=== PATIENT | female | born 1955 | race Caucasian/White ===

== ENCOUNTER → 2020-04-10 11:24 | Outpatient (CLI) | payer MEDICARE, BC, SELFPAY ==
--- NOTE | 2020-04-10 | DI.US.S_ITS ---
PROCEDURE: US PERIPH VENOUS UP EXTREM RT INDICATIONS: LOCALIZED WRIST EDEMA TECHNIQUE: Real-time imaging, as well as color and pulse Doppler interrogation, was performed of the right upper extremity deep veins from the inferior neck to the antecubital fossa. COMPARISON: None. FINDINGS: The internal jugular vein, visualized portions of the subclavian vein, axillary, and brachial veins are free of intraluminal thrombus. Where physically possible, the veins are normally compressible. Color and pulse Doppler demonstrate normal intraluminal flow, with expected phasicity and pulsatility. Additional scanning of the cephalic and basilic veins of the superficial system demonstrate normal compressibility, without thrombus. IMPRESSION: Negative for deep venous thrombosis. Note: Concordant preliminary findings given by the ip litigation paralegal upon the completion of the examination to Teresa Harris at 12:04 p.m. on April 10, 2020. Dictated by: Jase Vaughn M.D. on 04/10/2020 at 11:59 Approved by: Jase Vaughn M.D. on 04/10/2020 at 12:00
== END ==
PROVIDERS: PCP Nurse Practitioner Family; Referring Provider Nurse Practitioner Family; Visit Provider Nurse Practitioner Family
DX: R60.0 Localized edema (principal)
CPT/HCPCS: 93971

== ENCOUNTER 2020-04-14 13:54 | Emergency (ER) | payer MEDICARE, BC, SELFPAY ==
[2020-04-14 14:02] VITALS: BP 138/75; PULSE 74; RESP 18; TEMP 36.2; O2SAT 99; BMI 29.7
[2020-04-14 14:37] LABS: Add Manual Diff / Slide Review NO; Basophils Absolute Auto 100 /uL (0-100); Basophils Percent Auto 0.9 % (0-2); Eosinophils Absolute Auto 0 /uL (0-450); Eosinophils Percent Auto 0.2 % (2-4); Hematocrit 38.3 % (36-46); Hemoglobin 12.6 g/dL (12.0-16.0); Lymphocytes Absolute Auto 1200 /uL (1100-4500); Mean Corpuscular HGB Conc 32.9 % (30-36); Mean Corpuscular Hemoglobin 29.6 PG (26-34); Monocytes Absolute Auto 400 /uL (0-900); Neutrophils Absolute Auto 5600 /uL (1500-7000); Neutrophils Percent Auto 76.9 % (50-75); Platelet Count 348 X10^3/uL (150-400); Red Blood Cell Count 4.26 X10^6/uL (4.0-5.2); Red Cell Distribution Width 13.8 % (11.6-14.8); White Blood Cell Count 7.3 X10^3/uL (4.5-11.0)
[2020-04-14 14:42] LABS: Alanine Aminotransferase 15 IU/L (<35); Albumin 4.2 g/dL (3.5-5.0); Albumin Globulin Ratio 1.2 (1.0-2.8); Alkaline Phosphatase 68 U/L (38-126); Aspartate Aminotransferase 21 IU/L (14-36); BUN Creatinine Ratio 23.3 (6-22); Bilirubin Total 0.4 mg/dL (0.2-1.3); Blood Urea Nitrogen 14 mg/dL (7-17); Calcium 9.4 mg/dL (8.4-10.2); Carbon Dioxide 27 mmol/L (22-32); Chloride 105 mmol/L (98-107); Estimated Glomerular Filt Rate > 60.0 mL/min (>60); Globulin 3.5 g/dL (1.7-4.1); Glucose 121 mg/dL (80-110); HEMOLYSIS < 15 (0-50); Potassium 4.7 mmol/L (3.4-5.1); Sodium 137 mmol/L (137-145); Total Protein 7.7 g/dL (6.3-8.2)
[2020-04-14 14:51] LABS: NT-proBNP (BNP-Adult 18+) 103 pg/mL (<125)
--- NOTE | 2020-04-14 16:43 | ED_ITS ---
HPI - Extremity Problem General Chief complaint: Extremity Injury, Upper Stated complaint: pain and swelling/ all over body Time Seen by Provider: 04/14/20 16:35 Source: patient Mode of arrival: Ambulatory Limitations: no limitations History of Present Illness HPI Narrative: This is a 65-year-old female comes to the emergency department with complaint of pain and swelling particularly in her hands but radiating up per arms and mostly on the right side but sometimes on the left as well into her leg. Patient states she feels pain in her joints as well. She states it seems to be worse in the morning and improves throughout the day although she has been taking prednisone for the last 5 days and has found this helpful but as it wears off she feels her symptoms returned significantly. She denies any fevers. She has felt cold but not chills. She has not had any cold cough or congestion. No chest pain or shortness of breath. She had some mild nausea shortly after her prednisone today but otherwise has not had any nausea and has had no vomiting. She denies any GI or urinary symptoms otherwise. She denies any rashes or skin changes. She states she was seen on [place] by Teresa Harris, she had a ultrasound of her right upper extremity which was negative and was told that she needed to get some lab tests which they could not get on the [place] currently. She states she was taking ibuprofen which was moderately helpful. She denies any other medical issues besides carpal tunnel symptoms. 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 She denies other medical issues. She denies any tobacco she denies any alcohol or illicit to myself but to nurse's states a couple times a week and occasional marijuana. Related Data Home Medications Medication Instructions Recorded Confirmed OMEGA-3 FATTY ACIDS (FISH OIL) 500 mg PO #0 07/14/16 [Co-Q-10] #0 07/14/16 ascorbic acid (vitamin C) 500 mg PO QDAY #0 07/14/16 ibuprofen 600 mg PO BID #0 07/14/16 multivitamin [Multiple Vitamins] 1 tab PO QDAY #0 07/14/16 Allergies Allergy/AdvReac Type Severity Reaction Status Date / Time No Known Drug Allergies Allergy Verified 04/14/20 14:02 Review of Systems Review of Systems ROS Unobtainable: All systems reviewed & are unremarkable except as noted in HPI and below Patient History Surgical History Presence of cardiac pacemaker Status post hysterectomy Family History Brother Cancer Heart disease Father Heart disease Mother Mental health problem Social History Smoking Status: Never smoker Smoking Status: Never smoker alcohol intake frequency: a few times a week Substance Use Type: marijuana Exam Narrative Exam Narrative: GEN: well nourished, well appearing female, alert and oriented x 3, patient appears to be in mild distress. HEENT: Atraumatic, pupils are equal round reactive to light, extraocular movements are intact, nares are clear, TMs are clear with no fluid, there is no conjunctival pallor or injection. HEART: Regular rate and rhythm without murmur, clicks, rubs. Pulses are equal in upper and lower extremities LUNGS:Lungs clear to auscultation, no wheezes, rales, crackles, chest moves symmetrically ABD:bowel sounds normal, soft, non-tender, no guarding, rebound, rigidity, no masses noted, no hepatosplenomegaly :No CVA tenderness MSCL: Non-tender, no muscle atrophy, muscles strength 5/5 upper and lower extremities, full range of motion, normal gait, patient has equal manager flight bilaterally. 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 NEURO:CN 2-12 intact, sensation normal SKIN: No rash, erythema or other skin changes. Initial Vital Signs Initial Vital Signs: Vital Signs Temperature 97.1 F L 04/14/20 14:02 Pulse Rate 74 04/14/20 14:02 Respiratory Rate 18 04/14/20 14:02 Blood Pressure 138/75 04/14/20 14:02 Pulse Oximetry 99 04/14/20 14:02 Course Orders Ordered: ED Orders 04/14/20 14:15 BNP [NT-proBNP (BNP-Adult 18+)] Stat CMP [Comprehensive Metabolic Panel] Stat Complete Blood Count AUTO DIFF Stat Creatine Kinase Stat 04/14/20 17:11 COVID19 -ED/INPAT/OR/L&D Stat Vital Signs Vital signs: Vital Signs - 8 hr 04/14/20 14:02 04/14/20 18:06 Temperature 97.1 F L Pulse Rate 74 71 Respiratory Rate 18 18 Blood Pressure 138/75 132/66 Pulse Oximetry 99 99 MDM - Extremity (Nontraumatic) Lab Data Result diagrams: 04/14/20 14:15 04/14/20 14:15 Labs: Lab Results 04/14/20 04/14/20 04/14/20 Range/Units 14:15 14:15 14:15 WBC 7.3 (4.5-11.0) X10^3/uL RBC 4.26 (4.0-5.2) X10^6/uL Hgb 12.6 (12.0-16.0) g/dL Hct 38.3 (36-46) % MCV 90.0 (80-100) fL MCH 29.6 (26-34) PG MCHC 32.9 (30-36) % RDW 13.8 (11.6-14.8) % Plt Count 348 (150-400) X10^3/uL Neut % (Auto) 76.9 H (50-75) % Lymph % (Auto) 16.0 L (25-40) % [place] % (Auto) 6.0 (3-14) % Eos % (Auto) 0.2 L (2-4) % Baso % (Auto) 0.9 (0-2) % Neut # (Auto) 5600 (0117-5777) /uL Lymph # (Auto) 1200 (0377-5182) /uL [place] # (Auto) 400 (0-900) /uL Eos # (Auto) 0 (0-450) /uL Baso # (Auto) 100 (0-100) /uL Sodium 137 (137-145) mmol/L Potassium 4.7 (3.4-5.1) mmol/L Chloride 105 (98-107) mmol/L Carbon Dioxide 27 (22-32) mmol/L BUN 14 (7-17) mg/dL Creatinine 0.60 (0.52-1.04) mg/dL Estimated GFR > 60.0 (>60) mL/min BUN/Creatinine Ratio 23.3 H (6-22) Glucose 121 H (80-110) mg/dL Calcium 9.4 (8.4-10.2) mg/dL Total Bilirubin 0.4 (0.2-1.3) mg/dL AST 21 (14-36) IU/L ALT 15 (<35) IU/L Alkaline Phosphatase 68 (38-126) U/L Total Creatine Kinase (30-135) U/L NT-Pro-B Natriuret Pep 103 (<125) pg/mL Total Protein 7.7 (6.3-8.2) g/dL Albumin 4.2 (3.5-5.0) g/dL Globulin 3.5 (1.7-4.1) g/dL Albumin/Globulin Ratio 1.2 (1.0-2.8) COVID-19 PCR (Negative) 04/14/20 04/14/20 Range/Units 14:15 17:11 WBC (4.5-11.0) X10^3/uL RBC (4.0-5.2) X10^6/uL Hgb (12.0-16.0) g/dL Hct (36-46) % MCV (80-100) fL MCH (26-34) PG MCHC (30-36) % RDW (11.6-14.8) % Plt Count (150-400) X10^3/uL Neut % (Auto) (50-75) % Lymph % (Auto) (25-40) % [place] % (Auto) (3-14) % Eos % (Auto) (2-4) % Baso % (Auto) (0-2) % Neut # (Auto) (7912-6312) /uL Lymph # (Auto) (9431-1045) /uL [place] # (Auto) (0-900) /uL Eos # (Auto) (0-450) /uL Baso # (Auto) (0-100) /uL Sodium (137-145) mmol/L Potassium (3.4-5.1) mmol/L Chloride (98-107) mmol/L Carbon Dioxide (22-32) mmol/L BUN (7-17) mg/dL Creatinine (0.52-1.04) mg/dL Estimated GFR (>60) mL/min BUN/Creatinine Ratio (6-22) Glucose (80-110) mg/dL Calcium (8.4-10.2) mg/dL Total Bilirubin (0.2-1.3) mg/dL AST (14-36) IU/L ALT (<35) IU/L Alkaline Phosphatase (38-126) U/L Total Creatine Kinase 21 L (30-135) U/L NT-Pro-B Natriuret Pep (<125) pg/mL Total Protein (6.3-8.2) g/dL Albumin (3.5-5.0) g/dL Globulin (1.7-4.1) g/dL Albumin/Globulin Ratio (1.0-2.8) COVID-19 PCR Negative (Negative) MDM Narrative Medical decision making narrative: Discussed with patient some of her symptoms are suggestive of possibly a autoimmune or rheumatologic source. We discussed adding on a CPK to her lab work to evaluate for polymyalgia. Patient does seem to be responding to prednisone she has had 5 days worth and was given prescription for 5 additional days although we discussed that she needs to taper down her dosage so she does not get adrenal suppression. Her lab work today does not show any acute abnormalities that would define her symptoms. She states she has had a history of carpal tunnel although her symptoms seem to be more global and less localized to that area at this time. We discussed the unlikely notice go bit but that there is potential for atypical pattern and this was also obtained, both CPK and covid were negative. Discharge Plan Departure Patient Disposition: Home Clinical Impression: Complaints of total body pain Discharge Date/Time: 04/14/20 18:08 Activity Restrictions/Additional Instructions: Follow up with your physician for recheck this week. Your CBC, CMP, BNP and CPK did not show any acute changes. You may continue prednisone but I would recommend taking 1/2 tablet twice daily x 2 days, followed by 1/2 tablet daily x 3 days to taper your dose. You may also take tylenol up to 1000mg every 8 hours as needed for pain, 3000mg maximum in 24 hours. Return to ER for fevers, difficulty breathing, chest pain, passing out, persistent vomiting, new weakness numbness or inability use her extremities or other new or concerning symptoms. Prescriptions: No Action multivitamin [Multiple Vitamins] 1 EACH tablet 1 tab PO QDAY Qty: 0 RF: 0 OMEGA-3 FATTY ACIDS (FISH OIL) 500 mg PO Qty: 0 RF: 0 [Co-Q-10] Qty: 0 RF: 0 ascorbic acid (vitamin C) 500 MG tablet 500 mg PO QDAY Qty: 0 RF: 0 ibuprofen 600 MG tablet 600 mg PO BID Qty: 0 RF: 0 Referrals: Teresa Harris ARNP [Primary Care Provider] -
[2020-04-14 17:28] LABS: Creatine Kinase 21 U/L (30-135)
[2020-04-14 17:46] LABS: COVID19 -Nasal RAPID Negative (Negative)
[2020-04-14 18:06] VITALS: BP 132/66; PULSE 71; RESP 18; O2SAT 99
== END 2020-04-14 18:08 | disposition home or self-care (01) ==
PROVIDERS: Emergency Provider Emergency Medicine; PCP Nurse Practitioner Family
DX: R52 Pain, unspecified (principal); R11.0 Nausea; Z95.0 Presence of cardiac pacemaker; Z11.59 Encounter for screening for other viral diseases
CPT/HCPCS: 36415; 80053; 82550; 83880; 85025; 87635; 99283; 99284

== ENCOUNTER → 2020-07-04 08:56 | Outpatient (CLI) | payer MEDICARE, BC, SELFPAY ==
--- NOTE | 2020-07-04 | DI.CT.S_ITS ---
PROCEDURE: CT ANGIO CHEST INDICATIONS: Other specified abnormal findings of blood chemistry TECHNIQUE: After the administration of intravenous contrast, 2 mm thick sections acquired from the pulmonary apices to the posterior costophrenic angles. 3-dimensional maximum intensity projection (MIP) coronal and sagittal reformats were then acquired through the thorax. For radiation dose reduction, the following was used: automated exposure control, adjustment of mA and/or kV according to patient size. COMPARISON: [facility], , PERIP VENOUS LOW EXTREM BI, 07/04/2020, 9:33. FINDINGS: Image quality: Excellent. Pulmonary arteries: Pulmonary arteries are normal in size, and demonstrate no intraluminal filling defects to suggest central pulmonary embolism. Lungs and pleura: Lungs are clear. No pleural effusions or pneumothorax. Central and peripheral airways are patent. Mediastinum: Heart size is normal, without pericardial effusion. No mediastinal or hilar adenopathy. Thoracic aorta is normal in caliber and enhancement. 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 This is considered to be a developmental variant of no clinical consequence. Esophagus is normal in caliber, without hiatal hernia. Bones and chest wall: No suspicious bony lesions. No significant rib abnormality can be seen. There is a remote appearing anterior wedge deformity of T11, with 10 20% loss of height anteriorly. Age-appropriate bony degenerative changes are seen. Thyroid gland demonstrates a 2 cm low-density lesion on the right, as on series 7, image 16. . No axillary or supraclavicular adenopathy. A pacer device is seen. Abdomen: Visualized upper abdominal solid organs appear normal in the early arterial phase of enhancement. IMPRESSION: Negative for pulmonary embolism. Incidental note is made of a 2 cm low-density right thyroid lesion, which likely represents a cyst. If clinically appropriate, please consider a dedicated thyroid ultrasound for further evaluation. Incidental note is made of: Pacer device Bovine type aortic branching pattern Remote appearing T11 anterior wedge deformity. Dictated by: Jase Vaughn M.D. on 07/04/2020 at 9:16 Approved by: Jase Vaughn M.D. on 07/04/2020 at 9:20
--- NOTE | 2020-07-04 | DI.US.S_ITS ---
PROCEDURE: US PERIPH VENOUS LOW EXTREM BI INDICATIONS: ELEVATED D-DIMER TECHNIQUE: Real-time imaging, as well as color and pulse Doppler interrogation, were performed of the deep veins of both legs from the inguinal ligament to the popliteal fossa. COMPARISON: [facility], CT, CT ANGIO CHEST, 07/04/2020, 9:44. FINDINGS: Right: The common femoral, femoral and popliteal veins are normally compressible, and free of intraluminal thrombus. Color and pulse Doppler demonstrate normal phasic intravascular flow. There is normal augmentation response to distal compression maneuver. Left: The common femoral, femoral and popliteal veins are normally compressible, and free of intraluminal thrombus. Color and pulse Doppler demonstrate normal phasic intravascular flow. There is normal augmentation response to distal compression maneuver. IMPRESSION: Negative for deep venous thrombosis. Dictated by: Jase Vaughn M.D. on 07/04/2020 at 9:15 Approved by: Jase Vaughn M.D. on 07/04/2020 at 9:15
== END ==
PROVIDERS: PCP Nurse Practitioner Family; Referring Provider Family Medicine; Visit Provider Family Medicine
DX: R79.89 Other specified abnormal findings of blood chemistry (principal); R53.83 Other fatigue; E07.9 Disorder of thyroid, unspecified; Z95.0 Presence of cardiac pacemaker
CPT/HCPCS: 71275; 93970

== ENCOUNTER → 2020-08-02 08:15 | Outpatient (CLI) | payer MEDICARE, BC, SELFPAY ==
--- NOTE | 2020-08-02 | DI.US.S_ITS ---
ULTRASOUND OF RIGHT AXILLA: 08/02/2020 CLINICAL: Right axillary tenderness x 2 years. Comparison is made to exam dated: 08/02/2020 [facility]. Real-time ultrasound of the right axilla was performed on the area of interest. No discrete cystic or solid mass lesion identified in the area of focal tenderness. IMPRESSION: SUSPICIOUS OF MALIGNANCY There is no abnormality seen in the right axilla to correspond with the tenderness in the right axilla, however, clinical followup is recommended. A stereotactic guided biopsy is recommended for right breast calcifications seen on mammography. The findings were discussed with the patient at the conclusion of the study by Dr. Patterson. This exam was interpreted at Station ID: [id number]. Electronically Signed By: Nadir huerta/:08/02/2020 11:12:52 letter sent: Biopsy Required Ultrasound BI-RADS: 4b Moderate suspicion of malignancy
--- NOTE | 2020-08-02 | DI.MG.S_ITS ---
BILATERAL DIGITAL DIAGNOSTIC MAMMOGRAM 3D/2D: 08/02/2020 CLINICAL: Baseline exam. Mastodynia. No prior exams were available for comparison. The tissue of both breasts is heterogeneously dense. This may lower the sensitivity of mammography. There are grouped fine calcifications in the right breast at 12 o'clock middle depth. No other significant masses, calcifications, or other findings are seen in either breast. IMPRESSION: INCOMPLETE: NEEDS ADDITIONAL IMAGING EVALUATION The grouped fine calcifications in the right breast are at a moderate suspicion for malignancy. A stereotactic biopsy is recommended. There is no abnormality seen in either breast to correspond with the diffuse tenderness, however, clinical followup is recommended. There is no abnormality seen in the right axilla to correspond with the tenderness in the right axilla, however, ultrasound is recommended. This exam was interpreted at Station ID: [id number]. NOTE: For mammograms, a report in lay terms will be sent to the patient. Approximately 15% of breast malignancies will not be visualized mammographically. In the management of a palpable breast mass, a negative mammogram must not discourage biopsy of a clinically suspicious lesion. Electronically Signed By: Nadir huerta/marcelo:08/02/2020 11:09:14 ACR BI-RADS Category 0: Incomplete [id number]
== END ==
PROVIDERS: PCP Nurse Practitioner Family; Referring Provider Nurse Practitioner Family; Visit Provider Nurse Practitioner Family
DX: R92.1 Mammographic calcification found on diagnostic imaging of breast (principal); N64.4 Mastodynia
CPT/HCPCS: 76882; 77066; G0279

== ENCOUNTER → 2020-09-05 14:34 | Outpatient (CLI) | payer MEDICARE, BC, SELFPAY ==
--- NOTE | 2020-09-05 20:01 | DI.NM.S_ITS ---
DATE OF SERVICE: 09/05/2020 PROCEDURE: Exercise perfusion study. INDICATION: History of AFib, V-tach. EXERCISE STRESS TEST: The patient underwent exercise stress test under the supervision of an attending staff. The patient walked on Dustin protocol for 4 minutes 27 seconds, achieved 108 percent of target heart rate, 7 METs of workload and functional aerobic impairment positive 25 percent. Baseline blood pressure reported to be 115/42. Maximum blood pressure reported 172/102 mmHg. Baseline EKG revealed sinus rhythm. During stress, no convincing ischemic EKG changes seen. No obvious atrial fibrillation or ventricular tachycardia seen. Occasional PACs were seen. No chest pain reported. Patient felt fatigued. CONCLUSION: 1. Exercise stress test was negative for inducible ischemia. 2. Diminished exercise tolerance. 3. Enhanced chronotropic response. 4. Peak blood pressure 172/102 mmHg. 5. No ischemic symptoms. The patient achieved 7 METs of workload and functional aerobic impairment of positive 25 percent. PawelJun - RUKHSANA/anthony/scar doc#: [id number]/job#: [id number] dd: 09/05/2020 18:02:00 dt: 09/05/2020 19:33:00 DICTATING /COPIES TO: Sidra Sommer MD COPIES MNE: TI;
== END ==
PROVIDERS: PCP Nurse Practitioner Family; Referring Provider Nurse Practitioner Family; Visit Provider Nurse Practitioner Family
DX: I47.2 Ventricular tachycardia (principal); I48.91 Unspecified atrial fibrillation
CPT/HCPCS: 93016; 93017; 93018